=== PATIENT | female | born 2000 | race Caucasian/White ===

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

== ENCOUNTER → 2018-06-08 | Outpatient (CLI) | payer BC, MEDICAID ==
[2018-06-08 18:18] LABS: HCG, SERUM QUANTITATIVE 42927 MIU/ML
== END ==
LOC: M SMT 11:54
DX: Z32.01 Encounter for pregnancy test, result positive (principal)
CPT/HCPCS: 84702

== ENCOUNTER 2018-07-09 08:11 | Emergency (ER) | payer BC, MEDICAID ==
[2018-07-09 08:54] LABS: KETONE, URINE AUTO RFX NEGATIVE (NEGATIVE); MUCUS, URINE RFX SMALL (NEGATIVE); NITRITE, URINE AUTO RFX NEGATIVE (NEGATIVE); RBC, URINE AUTO RFX 4 /HPF (0-3); SPECIFIC GRAVITY UR AUTO RFX 1.024 (1.002-1.035); SQUAM EPITHELIAL CELL UR AURFX 6 /HPF (0-6); WBC, URINE AUTO RFX 9 /HPF (0-3)
[2018-07-09] MEDS: KETOROLAC 60 MG/2 ML VIAL (J1885) IM (09:00)
[2018-07-09 09:34] LABS: LEUKOCYTE ESTERASE UR AUTO RFX TRACE (NEGATIVE)
[2018-07-09] MEDS: ACETAMINOPHEN 325 MG TAB PO (09:54)
[2018-07-09 12:24] LABS: BASO # 0.1 10^3/uL (0.0-0.2); EOS # 0.4 10^3/uL (0.0-0.50); EOS % 4.8 % (0.0-3.0); HEMOGLOBIN 14.2 g/dl (12.0-15.5); IMMATURE GRANULOCYTE % 0.1 % (0-3.0); LYMPH # 2.7 10^3/uL (1.5-6.5); LYMPH % 32.4 % (24.0-44.0); MEAN CORPUSCULAR HEMOGLOBIN 29.3 pg (27.0-33.0); MEAN CORPUSCULAR HGB CONC 33.8 g/dl (32.0-36.5); MEAN CORPUSCULAR VOLUME 86.8 fl (80.0-96.0); MONO # 0.5 10^3/uL (0.0-0.8); MONO % 5.6 % (0.0-5.0); NEUTROPHILS # 4.6 10^3/uL (1.8-7.7); NEUTROPHILS % 56.1 % (36.0-66.0); PLATELET COUNT, AUTOMATED 269 10^3/uL (150-450); RED BLOOD COUNT 4.84 10^6/uL (4.00-5.40); RED CELL DISTRIBUTION WIDTH 14.3 % (11.5-14.5); WHITE BLOOD COUNT 8.2 10^3/uL (4.0-10.0)
[2018-07-09 12:48] LABS: ANION GAP 9 MEQ/L (8-16); BLOOD UREA NITROGEN 11 MG/DL (7-18); CARBON DIOXIDE LEVEL 24 MEQ/L (21-32); CHLORIDE LEVEL 112 MEQ/L (98-107); CREATININE FOR GFR 0.96 MG/DL (0.55-1.30); GLUCOSE, FASTING 79 MG/DL (70-100); HCG, SERUM QUANTITATIVE 21 MIU/ML; POTASSIUM SERUM 4.5 MEQ/L (3.5-5.1); SODIUM LEVEL 145 MEQ/L (136-145)
[2018-07-09] MEDS: metroNIDAZOLE (FLAGYL) 500 MG TAB PO (13:24)
[2018-07-09 14:48] LABS: CHLAMYDIA DNA AMPLIFICATION NEGATIVE (NEGATIVE); GC DNA AMPLIFICATION NEGATIVE (NEGATIVE)
== END 2018-07-09 13:31 | disposition home or self-care (01) ==
LOC: M ED 08:11
DX: O23.592 Infection of other part of genital tract in pregnancy, second trimester (principal); Z3A.14 14 weeks gestation of pregnancy
CPT/HCPCS: 76856

== ENCOUNTER 2019-03-09 22:32 | Emergency (ER) | payer BC, MEDICAID ==
[~2019-03-09] VITALS: Ht 162.6 cm; Wt 71.1 kg
[~2019-03-09 22:32] MED LIST changes: -ONDA4TAB6 PO
[2019-03-09] MEDS ORDERED: NS 1,000 ML IV ONE (23:00)
[2019-03-09] MEDS ORDERED: PROMETHAZINE INJ 25 MG/ML VIAL (J2550) IV ONE (23:15)
[2019-03-09 23:36] LABS: BASO # 0.1 10^3/uL (0.0-0.2); BASO % 0.5 % (0.0-1.0); EOS % 0.4 % (0.0-3.0); HEMATOCRIT 52.7 % (36.0-47.0); HEMOGLOBIN 17.5 g/dl (12.0-15.5); LYMPH # 1.4 10^3/uL (1.5-6.5); LYMPH % 14.1 % (24.0-44.0); MEAN CORPUSCULAR HEMOGLOBIN 29.2 pg (27.0-33.0); MEAN CORPUSCULAR HGB CONC 33.2 g/dl (32.0-36.5); MONO # 0.4 10^3/uL (0.0-0.8); MONO % 4.2 % (0.0-5.0); NEUTROPHILS # 8.1 10^3/uL (1.8-7.7); NEUTROPHILS % 80.3 % (36.0-66.0); PLATELET COUNT, AUTOMATED 315 10^3/uL (150-450); RED BLOOD COUNT 5.99 10^6/uL (4.00-5.40); WHITE BLOOD COUNT 10.1 10^3/uL (4.0-10.0)
[2019-03-09 23:53] LABS: ALBUMIN 3.7 GM/DL (3.2-5.2); ALT/SGPT 17 U/L (12-78); AMYLASE 40 U/L (25-115); BILIRUBIN,DIRECT 0.2 MG/DL (0.0-0.2); BILIRUBIN,TOTAL 0.6 MG/DL (0.2-1.0); BLOOD UREA NITROGEN 8 MG/DL (7-18); CALCIUM LEVEL 8.8 MG/DL (8.5-10.1); CARBON DIOXIDE LEVEL 22 MEQ/L (21-32); CHLORIDE LEVEL 107 MEQ/L (98-107); CREATININE FOR GFR 0.92 MG/DL (0.55-1.30); GLUCOSE, FASTING 104 MG/DL (70-100); LIPASE 129 U/L (73-393); POTASSIUM SERUM 3.6 MEQ/L (3.5-5.1); SODIUM LEVEL 140 MEQ/L (136-145); TOTAL PROTEIN 7.9 GM/DL (6.4-8.2)
[2019-03-10] MEDS: GASTROGRAFIN SOLUTION 30ML PO SCH ×2 (00:09→00:26)
[2019-03-10] MEDS ORDERED: ISOVUE-370 76% 100ML VIAL (Q9967) As Ordered ONE (00:21)
[2019-03-10 00:34] LABS: HCG, SERUM QUALITATIVE NEGATIVE (NEGATIVE)
--- NOTE | 2019-03-10 02:11 | REPVR ---
EXAM: CT Abdomen and Pelvis With Contrast EXAM DATE/TIME: 03/09/2019 10:58 PM CLINICAL HISTORY: 18 years old, female; Abdominal pain; Generalized TECHNIQUE: Imaging protocol: Axial computed tomography images of the abdomen and pelvis with intravenous contrast. Coronal and sagittal reformatted images were created and reviewed. Radiation optimization: All CT scans at this facility use at least one of these dose optimization techniques: automated exposure control; mA and/or kV adjustment per patient size (includes targeted exams where dose is matched to clinical indication); or iterative reconstruction. Contrast material: ISO; Contrast volume: 100 ml; Contrast route: AC; COMPARISON: None FINDINGS: LUNG BASES: No infiltrate or effusion. 3 mm subpleural pulmonary nodule within the right lower lobe (image 14, series 301), statistically, likely benign postinflammatory, based upon the patient's age. VASCULAR: Major vasculature is within normal limits. PERITONEAL : No free air or free fluid. GI: No hiatal hernia. The stomach is mildly distended with ingested material, contrast and gas. The stomach is not sufficiently distended to evaluate wall thickening. No asymmetric small bowel dilation is ingested obstruction. Small bowel folds appear slightly prominent throughout. This could be artifactual secondary to insufficient distention but findings may be related to mild gastroenteritis. Multiple small mesenteric lymph nodes are seen. These may be mildly reactive. Portions of the colon and rectum are slightly distended fluid levels. This is abnormal and could be correlated with symptoms and causes of diarrhea. Mildly elevated perisigmoid and perirectal vascularity is seen which may suggest mild distal proctocolitis. No evidence of acute diverticulitis. The appendix is not identified. HEPATOBILIARY, PANCREAS, SPLEEN: Sagittal hepatic length is 17.9 cm. Small area of hypoenhancement noted anteriorly within the liver, adjacent to the falciform ligament, most likely focal fatty infiltration. Mildly distended gallbladder. No calcified gallstones or biliary dilation. No pericholecystic fluid or stranding. No pancreatic inflammation. Spleen not enlarged. ADRENALS, KIDNEYS, BLADDER, RETROPERITONEAL: Adrenals within normal limits. Symmetric renal enhancement. Mild prominence of the proximal right renal collecting may be positional. No perinephric stranding or fluid. No perivesical stranding. No bladder wall thickening. PELVIC: Slightly heterogeneous uterus and cervix may be secondary to physiologic changes. Slight asymmetric prominence of the right ovary/adnexa, compared to the left with a suspected underlying slightly complex 2.7 x 2.5 cm cystic lesion. This could represent a complex cyst or follicle. If indicated consider ultrasound for better clarification. MUSCULOSKELETAL: Small noninflamed fat containing umbilical hernia. Mild degenerative changes of the spine. IMPRESSION: Clinical correlation for mild enterocolitis. Gastrointestinal findings discussed above in detail. Slightly complex right ovarian/adnexal cystic lesion of 2.7 cm may represent a slightly complex follicle/cyst. If indicated, consider ultrasound for confirmation and further characterization. Other findings discussed above. Electronically signed by: Lm White On 03/10/2019 02:11:01 AM
[2019-03-10] MEDS ORDERED: ONDA4TAB6 PO (02:31)
[2019-03-10 02:51] VITALS: BP 121/69
== END 2019-03-10 03:01 | disposition home or self-care (01) ==
LOC: M ED 22:32
DX: K52.9 Noninfective gastroenteritis and colitis, unspecified (principal); N83.201 Unspecified ovarian cyst, right side
CPT/HCPCS: 36415; 74177; 80048; 80076; 81001; 82150; 83605; 83690; 84703; 85025; 93041; 96361; 96374; 99284; Q9963; Q9967

== ENCOUNTER → 2019-03-09 | Outpatient (REF) | payer BC, MEDICAID ==
[~2019-03-09] MED LIST changes: +ADVI200C5 PO; +COLA100C5 PO; +LABE200T32 PO; +MILK120011 PO; +NIFE30TA50 PO; +ONDA4TAB6 PO; +OXYC1TAB23 PO; +PRENTAB9 PO
== END ==
LOC: M LAB REF 11:46
PROVIDERS: ATTEND Physician Assistant
DX: R11.2 Nausea with vomiting, unspecified (principal)

== ENCOUNTER → 2019-03-16 | Outpatient (CLI) | payer OTHER, MEDICAID ==
[~2019-03-16] MED LIST changes: +ONDA4TAB6 PO
--- NOTE | 2019-03-17 03:48 | REP ---
Clinical: Ovarian cyst. Comparison: 07/09/2018 . Technique: Transabdominal pelvic ultrasound followed by transvaginal examination for better evaluation of the endometrium and adnexa with color Doppler evaluation of the ovaries. Findings: Bladder is unremarkable and measures 6.6 x 3.7 x 8.2 cm . Anteverted uterus measures anteverted 9.2 x 3.7 x 5.7 cm. The endometrial complex measures 3.6 mm thickness. No discrete uterine or endometrial abnormalities are appreciated. Few small myometrial calcifications and trace fluid in the endocervical canal are nonspecific and likely incidental. Bilateral ovaries are normal in appearance and vascularity without evidence for torsion. Right ovary measures 3.6 x 3.2 x 3.0 cm with 2 cm dominant follicle ; R I = 0.48 . Left ovary measures 3.3 x 1.6 x 2.7 cm ; R I = 0.51 . Small amount of free fluid in the posterior cul-de-sac . Impression: 1. Dominant follicle in the right ovary. No evidence for torsion. 2. Incidental uterine findings. Electronically Signed by Vincenzo Fitzpatrick MD 03/17/2019 03:39 A
== END ==
LOC: M RAD 17:10
PROVIDERS: ATTEND Student in an Organized Health Care Education/Training Program
DX: N83.201 Unspecified ovarian cyst, right side (principal)

== ENCOUNTER → 2019-04-14 | Outpatient (CLI) | payer OTHER ==
--- NOTE | 2019-04-14 17:16 | REP ---
Pelvic sonogram: History: Right ovarian cyst. Findings: Transabdominal and transvaginal scanning are performed. Uterine dimensions are normal, 8.5 x 3.6 x 4.2 cm. Endometrial echo is 0.3 cm thick. Uterus is somewhat retroverted. No focal uterine mass is seen. Urinary bladder neville are smooth. Normal ovaries are seen bilaterally. Right ovarian dimensions are 3.0 x 1.4 x 2.8 cm. Left ovary measures 2.9 x 1.6 x 2.8 cm. Impression: Normal pelvic sonography.
== END ==
LOC: M WHC 14:54
PROVIDERS: ATTEND Student in an Organized Health Care Education/Training Program
DX: N83.201 Unspecified ovarian cyst, right side (principal)

== ENCOUNTER 2020-03-30 18:52 | Emergency (ER) | payer BC, MEDICAID ==
[~2020-03-30] VITALS: Ht 162.6 cm; Wt 69.8 kg
[2020-03-30 18:52] VITALS: BP 116/80
== END 2020-03-30 19:22 | disposition home or self-care (01) ==
LOC: M ED 18:52
DX: Z20.2 Contact with and (suspected) exposure to infections with a predominantly sexual mode of transmission (principal); Z72.51 High risk heterosexual behavior

== ENCOUNTER → 2020-07-12 | Outpatient (CLI) | payer BC, MEDICAID ==
[2020-07-12 16:43] LABS: HCG, SERUM QUALITATIVE NEGATIVE (NEGATIVE)
== END ==
LOC: M WUC 14:11
PROVIDERS: ATTEND Obstetrics & Gynecology
DX: O20.0 Threatened abortion (principal)

== ENCOUNTER → 2020-07-14 | Outpatient (CLI) | payer BC, MEDICAID | LOC: M WUC 14:36 | PROVIDERS: ATTEND Obstetrics & Gynecology | DX: O20.0 Threatened abortion (principal); Z3A.00 Weeks of gestation of pregnancy not specified ==

== ENCOUNTER → 2020-09-20 | Outpatient (REF) | payer MEDICAID ==
[2020-09-20 13:37] LABS: HEMATOCRIT 44.8 % (36.0-47.0); HEMOGLOBIN 14.4 g/dl (12.0-15.5); MEAN CORPUSCULAR HEMOGLOBIN 29.4 pg (27.0-33.0); MEAN CORPUSCULAR HGB CONC 32.1 g/dl (32.0-36.5); MEAN CORPUSCULAR VOLUME 91.6 fl (80.0-96.0); PLATELET COUNT, AUTOMATED 229 10^3/uL (150-450); RED BLOOD COUNT 4.89 10^6/uL (4.00-5.40); WHITE BLOOD COUNT 8.7 10^3/uL (4.0-10.0)
[2020-09-20 14:19] LABS: HCG, SERUM QUANTITATIVE 30552 MIU/ML
[2020-09-20 14:24] LABS: HEPATITIS B SURFACE ANTIGEN NEGATIVE (NEGATIVE)
[2020-09-20 14:52] LABS: HIV 1&2 SCREEN CENTAUR NEGATIVE (NEGATIVE)
== END ==
LOC: M LAB REF 12:10
PROVIDERS: ATTEND Obstetrics & Gynecology
DX: O36.80X0 Pregnancy with inconclusive fetal viability, not applicable or unspecified (principal); Z3A.00 Weeks of gestation of pregnancy not specified

== ENCOUNTER → 2020-09-25 | Outpatient (CLI) | payer MEDICAID ==
--- NOTE | 2020-09-25 10:12 | REP ---
INDICATION: DATING/VIABILITY COMPARISON: None. TECHNIQUE: Transabdominal 1st trimester obstetrical ultrasound with color Doppler evaluation FINDINGS: Single live early intrauterine is appreciated. Gestational sac with yolk sac and pole identified. [place]-rump length of 6 mm corresponds to 6 weeks 3 days gestational age with estimated date of delivery 05/18/2021. heart rate equals 121 beats per minute. Subchorionic hemorrhage posterior to the gestational sac measures 23 x 16 x 4 mm. Evaluation of the maternal ovaries demonstrates right corpus luteum cyst. Cervix measures 3.1 cm in length and appears closed. IMPRESSION: 1. Single live early intrauterine at 6 weeks 3 days gestational age. 2. Subchorionic hemorrhage identified. 3. Complete anatomical assessment should be performed and 19-20 weeks. <Electronically signed by Vincenzo Fitzpatrick > 09/25/20 [id number]
== END ==
LOC: M WHC 09:18
PROVIDERS: ATTEND Obstetrics & Gynecology
DX: Z34.81 Encounter for supervision of other normal pregnancy, first trimester (principal)

== ENCOUNTER → 2020-10-18 | Outpatient (REF) | payer OTHER | LOC: M LAB REF 16:19 | PROVIDERS: ATTEND Obstetrics & Gynecology | DX: Z34.81 Encounter for supervision of other normal pregnancy, first trimester (principal) ==

== ENCOUNTER → 2020-10-19 | Outpatient (REF) | payer OTHER ==
[2020-10-19 17:34] LABS: TOTAL PROTEIN 24 HOUR URINE 63.6 MG/24HR (50-150); URINE TOTAL PROTEIN 10.6 MG/DL (0-12)
== END ==
LOC: M LAB REF 16:27
PROVIDERS: ATTEND Obstetrics & Gynecology
DX: O14.90 Unspecified pre-eclampsia, unspecified trimester (principal)

== ENCOUNTER → 2021-01-01 | Outpatient (CLI) | payer OTHER ==
[~2021-01-01] MED LIST changes: +ASPI1CHW3 PO; +MACR100C43 PO
--- NOTE | 2021-01-01 15:24 | REP ---
INDICATION: ANATOMY COMPARISON: None. TECHNIQUE: Transabdominal obstetrical ultrasound with color Doppler evaluation. FINDINGS: Examination demonstrates a single live intrauterine in breech presentation. motion is identified by technologist. Placenta is noted posterior and grade 1 without evidence for placenta previa or abruption. Amniotic fluid volume is normal. Cervix measures 3.3 cm in length and appears closed.. Gestational age by 1st ultrasound 20 weeks 5 days with FLAVIO 05/16/2021. Gestational age by current measurements 20 weeks 0 days with FLAVIO 05/21/2021. FHR equals 160 beats per minute. BPD: 4.3 cm at 18 weeks 6 days HC: 17.6 cm at 20 weeks 1 day AC: 15.5 cm at 20 weeks 4 days FL: 3.2 cm at 19 weeks 6 days HL: 3.2 cm at 20 weeks 5 days HC/AC: 1.14 Estimated weight 341 grams (23rdpercentile). Anatomical assessment demonstrates normal structures including cranium, choroid plexus, cavum, cerebellum/posterior fossa, facial features, lungs, four-chamber heart/ventricular outflow tracts, diaphragm, stomach, cord insertion/three-vessel cord, kidneys/bladder, spine, and extremities. IMPRESSION: Single live intrauterine in breech presentation demonstrating appropriate estimated weight. Anatomical assessment is complete and normal. <Electronically signed by Vincenzo Fitzpatrick > 01/01/21 [id number]
== END ==
LOC: M WHC 13:25
PROVIDERS: ATTEND Obstetrics & Gynecology
DX: Z34.82 Encounter for supervision of other normal pregnancy, second trimester (principal); Z3A.20 20 weeks gestation of pregnancy

== ENCOUNTER 2021-01-06 12:31 | Outpatient (CLI) | payer OTHER ==
[~2021-01-06] VITALS: Ht 162.6 cm; Wt 72.7 kg
[~2021-01-06 12:31] MED LIST changes: -ASPI1CHW3 PO; -MACR100C43 PO
[2021-01-06 12:58] VITALS: BP 137/77
[2021-01-06 13:08] VITALS: BP 137/77
[2021-01-06] MEDS ORDERED: ASPI1CHW3 PO (13:08)
[2021-01-06] MEDS ORDERED: PRENTAB9 PO (13:08)
--- NOTE | 2021-01-06 14:37 | IPNPDOC ---
Text Note Date of Service The patient was seen on 01/06/21. NOTE L&D Triage Note: S: 20yo at 21w2d presents with pelvic and back pain. Denies N/V/F/C. Pelvic pain started yesterday O: vss, AF +doptones Gen: well appearing abd: gravid Urine dip c/w UTI. Culture sent A/P: 20yo at 21w2w with acute cystitis -Reassuring status -Macrobid 100mg BID x7 day - labor precautions and OB f/u Thursday Rashmi Sandra MD VS,Sukhdev, I+O VS, Sukhdev, I+O Vital Signs Date Time Temp Pulse Resp B/P (MAP) Pulse Ox O2 Delivery O2 Flow Rate FiO2 01/06/21 13:08 97.1 100 18 137/77 (97) Room Air RASHMI SANDRA MD. Jan 06, 2021 14:37
[2021-01-06] MEDS ORDERED: NITROFURANTOIN (MACROBID) 100 MG CAP PO ONE (15:00)
[2021-01-07] MEDS ORDERED: MACR100C43 PO (09:32)
== END 2021-01-06 14:34 | disposition home or self-care (01) ==
LOC: M LDO 12:31
PROVIDERS: ATTEND Obstetrics & Gynecology
DX: O23.42 Unspecified infection of urinary tract in pregnancy, second trimester (principal); Z3A.21 21 weeks gestation of pregnancy

== ENCOUNTER 2021-01-09 04:53 | Emergency (ER) | payer OTHER ==
[~2021-01-09] VITALS: Ht 162.6 cm; Wt 72.1 kg
[~2021-01-09 04:53] MED LIST changes: +ASPI1CHW3 PO; +MACR100C43 PO
[2021-01-09 04:54] VITALS: BP 117/67
[2021-01-09] MEDS ORDERED: ACET-683 PO (05:04)
[2021-01-10] MEDS ORDERED: CEPH500C PO (08:37)
== END 2021-01-09 05:20 | disposition admitted as inpatient to this hospital (09) ==
LOC: M ED 04:53
DX: Z53.29 Procedure and treatment not carried out because of patient's decision for other reasons (principal)

== ENCOUNTER 2021-01-09 05:25 | Outpatient (CLI) | payer OTHER ==
[~2021-01-09] VITALS: Ht 162.6 cm; Wt 74.2 kg
[~2021-01-09 05:25] MED LIST changes: +ACET-683 PO
[2021-01-09 05:56] VITALS: BP 113/73
[2021-01-09] MEDS ORDERED: cefTRIAXone SOD 1 GM in D5W MINI-BAG PLUS 50 ML IV ONE (06:15)
[2021-01-09] MEDS ORDERED: MORPHINE 4 MG/ML 1ML VIAL/SYRINGE (J2270) IV ONE (06:15)
[2021-01-09] MEDS ORDERED: NS 1,000 ML IV ONE (06:20)
--- NOTE | 2021-01-09 06:38 | IPNPDOC ---
Obstetrical Progress Note Date of Service Jan 09, 2021 Subjective 20yo at 21+4 weeks. EDC: 05/18/21. Presents with left-sided flank pain and fever. Pain has also recently been located along the right flank. Patient started treatment for a UTI earlier this week with Macrobid. She has a history of nephrolithiasis. She's continued to have increased lower back, flank pain, despite starting the prescribed antibiotic (Macrobid). Denies gross hematuria. Complains of fever, chills. She took her temperature at home and states it was 102 Fahrenheit. She denies vaginal bleeding, loss of fluid or uterine contractions. She reports movement. Past medical history : Nephrolithiasis Surgical history: Low transverse section Obstetric history: G1, Severe preeclampsia. Emergent at 35 weeks [employer] history denies any STI Medications: vitamin Macrobid and 81 mg aspirin NKDA Currently normotensive, afebrile (patient took Tylenol just prior to her arrival to triage) Heart regular rate and rhythm Lungs clear to auscultation bilaterally Left CVA tenderness No abdominal tenderness/fundal tenderness Doppler tones within normal limits, 140-150 bpm Sandborn: No contractions A/P: 20-year-old G2, P1 at 21+4 weeks gestation. Presentation clinically concerning for nephrolithiasis, complicated by pyelonephritis. -IV fluid bolus -IV Rocephin 1 g -IV morphine 4 mg for pain control -Renal ultrasound, bilateral -CBC, CMP, UA/culture Tiffani Mullen DO Objective Vital Signs Date Time Temp Pulse Resp B/P (MAP) Pulse Ox O2 Delivery O2 Flow Rate FiO2 01/09/21 05:56 97.4 134 16 113/73 (86) JENAE MULLEN DO Jan 09, 2021 06:38
[2021-01-09 06:46] LABS: AMORPHOUS SEDIMENT SMALL (NEGATIVE); APPEARANCE, URINE HAZY (CLEAR); BACTERIA, URINE AUTO 1+ (NEGATIVE); BILIRUBIN, URINE AUTO NEGATIVE (NEGATIVE); BLOOD, URINE BLOOD NEGATIVE (NEGATIVE); COLOR, URINE AMBER (YELLOW); GLUCOSE, URINE (UA) AUTO NEGATIVE (NEGATIVE); KETONE, URINE AUTO TRACE mg/dL (NEGATIVE); LEUKOCYTE ESTERASE, URINE AUTO TRACE (NEGATIVE); MUCUS, URINE SMALL (NEGATIVE); NITRITE, URINE AUTO NEGATIVE (NEGATIVE); PROTEIN, URINE AUTO 2+ mg/dL (NEGATIVE); RBC, URINE AUTO 3 /HPF (0-3); SPECIFIC GRAVITY URINE AUTO 1.017 (1.002-1.035); SQUAMOUS EPITHELIAL CELL UR AU 1 /HPF (0-6); WBC, URINE AUTO 20 /HPF (0-3)
[2021-01-09 06:48] LABS: HEMATOCRIT 33.1 % (36.0-47.0); HEMOGLOBIN 11.2 g/dl (12.0-15.5); MEAN CORPUSCULAR HEMOGLOBIN 30.5 pg (27.0-33.0); MEAN CORPUSCULAR HGB CONC 33.8 g/dl (32.0-36.5); MEAN CORPUSCULAR VOLUME 90.2 fl (80.0-96.0); PLATELET COUNT, AUTOMATED 161 10^3/uL (150-450); RED BLOOD COUNT 3.67 10^6/uL (4.00-5.40); WHITE BLOOD COUNT 11.3 10^3/uL (4.0-10.0)
[2021-01-09 07:13] LABS: ALBUMIN 2.4 GM/DL (3.2-5.2); ALT/SGPT 12 U/L (12-78); BILIRUBIN,TOTAL 0.4 MG/DL (0.2-1.0); BLOOD UREA NITROGEN 8 MG/DL (7-18); CALCIUM LEVEL 8.1 MG/DL (8.5-10.1); CARBON DIOXIDE LEVEL 22 MEQ/L (21-32); CHLORIDE LEVEL 102 MEQ/L (98-107); CREATININE FOR GFR 0.59 MG/DL (0.55-1.30); GLOMERULAR FILTRATION RATE > 60.0 (>60); GLUCOSE, FASTING 94 MG/DL (70-100); POTASSIUM SERUM 3.4 MEQ/L (3.5-5.1); SODIUM LEVEL 134 MEQ/L (136-145); TOTAL PROTEIN 6.2 GM/DL (6.4-8.2)
--- NOTE | 2021-01-09 08:14 | REP ---
INDICATION: bilateral flank pain, fever, h/o nephrolithiasis. COMPARISON: Comparison CT study March 10, 2019.. TECHNIQUE: Urinary tract sonography. FINDINGS: Scanning at the level of the urinary bladder shows no abnormality. Renal cortical echogenicity pattern is normal bilaterally and contours are smooth. There is moderate right-sided hydronephrosis with dilated proximal ureter. No calculus is seen. An extrarenal pelvis versus mild hydronephrosis is visible on CT images from March of 2019. The right kidney measures 13.3 x 6.0 x 5.3 cm. Left renal dimensions are 11.8 x 4.7 x 5.3 cm. IMPRESSION: Moderate right-sided hydronephrosis with dilated proximal ureter on the right. Otherwise normal urinary tract sonography. No calculus seen.. <Electronically signed by Santosh Simpson > 01/09/21 0800
[2021-01-09 09:21] VITALS: BP 107/71
[2021-01-09] MEDS: LR 1,000 ML IV SCH ×2 (09:24→17:02)
[2021-01-09 14:49] VITALS: BP 112/70
[2021-01-09] MEDS ORDERED: ACETAMINOPHEN TAB 650MG DOSE (2X325MG) PO ONE (15:10)
[2021-01-09] MEDS ORDERED: PERCOCET 5MG/325MG TAB PO PRN (15:10)
[2021-01-09 18:35] VITALS: BP 115/62
[2021-01-09 19:34] VITALS: BP 118/71
[2021-01-09 22:50] VITALS: BP 118/68
[2021-01-10] MEDS: LR 1,000 ML IV SCH (00:16)
[2021-01-10] MEDS ORDERED: ACETAMINOPHEN 500 MG TAB PO PRN (02:10)
[2021-01-10 02:12] VITALS: BP 109/62
[2021-01-10] MEDS ORDERED: cefTRIAXone SOD 1 GM in D5W MINI-BAG PLUS 50 ML IV ONE (07:00)
[2021-01-10 07:05] VITALS: BP 111/71
[2021-01-10] MEDS ORDERED: CEPH500C PO (08:37)
== END 2021-01-10 09:12 | disposition home or self-care (01) ==
LOC: M LDO 05:25
PROVIDERS: ATTEND Obstetrics & Gynecology
DX: O23.42 Unspecified infection of urinary tract in pregnancy, second trimester (principal); Z3A.21 21 weeks gestation of pregnancy
CPT/HCPCS: 36415; 76775; 80053; 81001; 85027; J0696; J2270; U0002

== ENCOUNTER → 2021-02-25 | Outpatient (CLI) | payer OTHER ==
[~2021-02-25] MED LIST changes: +CEPH500C PO
[2021-02-25 13:13] LABS: HEMATOCRIT 34.7 % (36.0-47.0); HEMOGLOBIN 11.2 g/dl (12.0-15.5); MEAN CORPUSCULAR HEMOGLOBIN 29.6 pg (27.0-33.0); MEAN CORPUSCULAR HGB CONC 32.3 g/dl (32.0-36.5); MEAN CORPUSCULAR VOLUME 91.6 fl (80.0-96.0); PLATELET COUNT, AUTOMATED 289 10^3/uL (150-450); RED BLOOD COUNT 3.79 10^6/uL (4.00-5.40); WHITE BLOOD COUNT 12.7 10^3/uL (4.0-10.0)
== END ==
LOC: M LAB 11:03
PROVIDERS: ATTEND Obstetrics & Gynecology
DX: Z34.82 Encounter for supervision of other normal pregnancy, second trimester (principal)

== ENCOUNTER → 2021-04-23 | Outpatient (REF) | payer OTHER | LOC: M LAB REF 16:41 | PROVIDERS: ATTEND Obstetrics & Gynecology | DX: Z34.83 Encounter for supervision of other normal pregnancy, third trimester (principal) ==

== ENCOUNTER → 2021-05-07 | Outpatient (REF) | payer OTHER | LOC: M LAB REF 16:39 | PROVIDERS: ATTEND Advanced Practice Midwife | DX: R30.0 Dysuria (principal) ==

== ENCOUNTER → 2021-05-11 | Outpatient (CLI) | payer OTHER | END | disposition home or self-care (01) | LOC: M LABSMTC 09:08 | PROVIDERS: ATTEND Anesthesiology | DX: Z01.812 Encounter for preprocedural laboratory examination (principal) ==

== ENCOUNTER 2022-11-05 15:43 | Emergency (ER) | payer OTHER ==
[~2022-11-05] VITALS: Ht 162.6 cm; Wt 67.3 kg
[~2022-11-05 15:43] MED LIST changes: +IBUP80TA PO; -LABE200T32 PO; +LABE200T5 PO; +PERCOCET PO
[2022-11-05 19:48] LABS: APPEARANCE, URINE MANUAL CLEAR (CLEAR); COLOR, URINE MANUAL LT YELLOW (YELLOW)
[2022-11-05 19:48] LABS: BASO # 0.1 10^3/uL (0.0-0.2); BASO % 0.6 % (0.0-1.0); EOS # 0.2 10^3/uL (0.0-0.5); HEMATOCRIT 39.3 % (36.0-47.0); HEMOGLOBIN 12.7 g/dl (12.0-15.5); LYMPH # 1.9 10^3/uL (1.5-5.0); LYMPH % 23.9 % (24.0-44.0); MEAN CORPUSCULAR HEMOGLOBIN 28.8 pg (27.0-33.0); MEAN CORPUSCULAR HGB CONC 32.3 g/dl (32.0-36.5); MEAN CORPUSCULAR VOLUME 89.1 fl (80.0-96.0); MONO # 0.5 10^3/uL (0.0-0.8); NEUTROPHILS % 65.2 % (36.0-66.0); PLATELET COUNT, AUTOMATED 264 10^3/uL (150-450); RED BLOOD COUNT 4.41 10^6/uL (4.00-5.40); WHITE BLOOD COUNT 7.7 10^3/uL (4.0-10.0)
[2022-11-05 19:50] LABS: BILIRUBIN, URINE MANUAL NEGATIVE (NEGATIVE); BLOOD URINE MANUAL NEGATIVE (NEGATIVE); GLUCOSE, URINE (UA) MANUAL NEGATIVE (NEGATIVE); KETONE, URINE MANUAL NEGATIVE (NEGATIVE); LEUKOCYTE ESTERASE, URINE MAN POSITIVE (NEGATIVE); NITRITE, URINE MANUAL POSITIVE (NEGATIVE); PH,URINE MAN 5.5 UNITS (5.0 - 7.0); PROTEIN, URINE MANUAL NEGATIVE (NEGATIVE); UROBILINOGEN, URINE MANUAL NORMAL (NORMAL)
[2022-11-05 19:52] VITALS: BP 117/76
[2022-11-05 20:08] LABS: BACTERIA, URINE LARGE AMOUNT; HYALINE CAST, URINE NONE SEEN /lpf (0-1); RBC, URINE 0-1 /hpf (0-3); SQUAMOUS EPITHELIAL CELL URINE MOD AMOUNT /hpf (SMALL AMT); WBC, URINE 40-50 /hpf (0-3)
[2022-11-05] MEDS ORDERED: CEPH500C PO (23:28)
== END 2022-11-05 19:54 | disposition home or self-care (01) ==
LOC: M ED 15:43
DX: O02.1 Missed abortion (principal); Z3A.08 8 weeks gestation of pregnancy; Z79.899 Other long term (current) drug therapy

== ENCOUNTER → 2022-12-23 | Outpatient (REF) | payer OTHER ==
[2022-12-23 12:47] LABS: HEMATOCRIT 41.9 % (36.0-47.0); HEMOGLOBIN 13.7 g/dl (12.0-15.5); MEAN CORPUSCULAR HEMOGLOBIN 29.2 pg (27.0-33.0); MEAN CORPUSCULAR HGB CONC 32.7 g/dl (32.0-36.5); MEAN CORPUSCULAR VOLUME 89.3 fl (80.0-96.0); PLATELET COUNT, AUTOMATED 253 10^3/uL (150-450); RED BLOOD COUNT 4.69 10^6/uL (4.00-5.40); WHITE BLOOD COUNT 9.1 10^3/uL (4.0-10.0)
[2022-12-23 14:05] LABS: HCG, SERUM QUANTITATIVE 38193.8 MIU/ML (<4.2); HEPATITIS C VIRUS ABY INDEX 0.1 INDEX (<0.8); HIV 1&2 SCREEN CENTAUR NEGATIVE (NEGATIVE)
== END ==
LOC: M LAB REF 12:22
PROVIDERS: ATTEND Obstetrics & Gynecology
DX: O36.80X0 Pregnancy with inconclusive fetal viability, not applicable or unspecified (principal); Z32.01 Encounter for pregnancy test, result positive

== ENCOUNTER → 2023-01-12 | Outpatient (CLI) | payer OTHER | LOC: M RAD 08:17 | PROVIDERS: ATTEND Obstetrics & Gynecology | DX: Z32.01 Encounter for pregnancy test, result positive (principal); Z3A.09 9 weeks gestation of pregnancy ==

== ENCOUNTER → 2023-04-08 | Outpatient (CLI) | payer OTHER ==
[~2023-04-08] MED LIST changes: +ASPI-655 PO; -ASPI1CHW3 PO
== END ==
LOC: M RAD 13:01
PROVIDERS: ATTEND Obstetrics & Gynecology
DX: Z34.82 Encounter for supervision of other normal pregnancy, second trimester (principal); Z3A.20 20 weeks gestation of pregnancy

== ENCOUNTER → 2023-06-04 | Outpatient (CLI) | payer OTHER ==
[~2023-06-04] MED LIST changes: +NIFE-3 PO; -NIFE30TA50 PO
== END ==
LOC: M LAB 08:16
PROVIDERS: ATTEND Obstetrics & Gynecology
DX: O99.810 Abnormal glucose complicating pregnancy (principal)

== ENCOUNTER 2023-07-10 17:41 | Emergency (ER) | payer OTHER ==
[~2023-07-10] VITALS: Ht 162.6 cm; Wt 84.1 kg
[2023-07-10 17:42] VITALS: BP 123/73; TEMP 97.8; O2SAT 99
[2023-07-10] MEDS ORDERED: ACET-897 PO (19:31)
[2023-07-10] MEDS ORDERED: ASPI81CH33 PO (19:31)
[2023-07-10] MEDS ORDERED: NITR100C2 PO (20:51)
== END 2023-07-10 18:34 | disposition admitted as inpatient to this hospital (09) ==
LOC: M ED 17:41
DX: O26.893 Other specified pregnancy related conditions, third trimester (principal); O24.419 Gestational diabetes mellitus in pregnancy, unspecified control; O13.3 Gestational [pregnancy-induced] hypertension without significant proteinuria, third trimester; Z53.9 Procedure and treatment not carried out, unspecified reason

== ENCOUNTER 2023-07-10 18:36 | Outpatient (CLI) | payer OTHER ==
[~2023-07-10] VITALS: Ht 162.6 cm; Wt 85.5 kg
[2023-07-10 18:59] VITALS: BP 121/81
[2023-07-10] MEDS ORDERED: ACET-897 PO (19:31)
[2023-07-10] MEDS ORDERED: ASPI81CH33 PO (19:31)
[2023-07-10] MEDS ORDERED: HOME MED LIST COMPLETE! XX SCH (19:35)
[2023-07-10] MEDS ORDERED: NITROFURANTOIN (MACROBID) 100 MG CAP PO ONE (20:50)
[2023-07-10] MEDS ORDERED: NITR100C2 PO (20:51)
[2023-07-10] MEDS ORDERED: PHENAZOPYRIDINE 100 MG TAB PO ONE (20:55)
== END 2023-07-10 21:21 | disposition home or self-care (01) ==
LOC: M LDO 18:36
PROVIDERS: ATTEND Advanced Practice Midwife
DX: O23.43 Unspecified infection of urinary tract in pregnancy, third trimester (principal); N39.0 Urinary tract infection, site not specified; O34.218 Maternal care for other type scar from previous cesarean delivery; Z87.59 Personal history of other complications of pregnancy, childbirth and the puerperium; Z3A.34 34 weeks gestation of pregnancy

== ENCOUNTER → 2023-07-14 | Outpatient (REF) | payer OTHER ==
[~2023-07-14] MED LIST changes: +ACET-897 PO; +ASPI81CH33 PO; +NITR100C2 PO
== END ==
LOC: M LAB REF 17:20
PROVIDERS: ATTEND Obstetrics & Gynecology
DX: Z34.83 Encounter for supervision of other normal pregnancy, third trimester (principal)

== ENCOUNTER 2023-08-06 04:54 | Inpatient (IN) | payer OTHER ==
[2023-08-06] VITALS (15 sets, daily range): BP systolic 114–140; BP diastolic 74–99; TEMP 96.3; O2SAT 97–99
[~2023-08-06] VITALS: Ht 162.6 cm; Wt 86.5 kg
[2023-08-06] MEDS ORDERED: LACTATED RINGER'S 1000 ML IV STA (05:07)
[2023-08-06 05:55] LABS: HEMATOCRIT 35.4 % (36.0-47.0); HEMOGLOBIN 11.2 g/dl (12.0-15.5); MEAN CORPUSCULAR HEMOGLOBIN 26.9 pg (27.0-33.0); MEAN CORPUSCULAR HGB CONC 31.6 g/dl (32.0-36.5); MEAN CORPUSCULAR VOLUME 85.1 fl (80.0-96.0); PLATELET COUNT, AUTOMATED 171 10^3/uL (150-450); RED BLOOD COUNT 4.16 10^6/uL (4.00-5.40); WHITE BLOOD COUNT 9.2 10^3/uL (4.0-10.0)
[2023-08-06] MEDS ORDERED: ceFAZolin SOD 2 GM in IV 1 EA IV ONE (06:00)
[2023-08-06] MEDS ORDERED: BICITRA 30ML SOLN UDC PO ONE (06:00)
[2023-08-06] MEDS ORDERED: HOME MED LIST COMPLETE! XX SCH (06:20)
[2023-08-06] MEDS: LR 1,000 ML IV SCH ×4 (06:27→23:09)
[2023-08-06] MEDS ORDERED: SIMETHICONE 80MG CHEW TAB PO PRN (07:55)
[2023-08-06] MEDS ORDERED: RHOGAM 300MCG (1500IU) INJ IM SCH (07:55)
[2023-08-06] MEDS ORDERED: OXYTOCIN DRIP 30 UNITS in IV 1 EA IV SCH (07:55)
[2023-08-06] MEDS ORDERED: MORPHINE PRES-FREE INJ 10 MG/10 ML VIAL As Ordered ONE (08:08)
[2023-08-06] MEDS ORDERED: OXYTOCIN INJ 10UNITS/ML 1ML VIAL As Ordered ONE ×2 (08:08→08:43)
[2023-08-06] MEDS ORDERED: KETOROLAC 60MG 2ML VIAL As Ordered ONE (08:08)
[2023-08-06] MEDS ORDERED: ONDANSETRON 4MG 2ML VIAL As Ordered ONE ×2 (08:08→10:15)
[2023-08-06 08:47] LABS: CORD GAS ABE V -1.8; CORD GAS HCO3 A 24.6 MMOL/L; CORD GAS HCO3 V 22.9 MMOL/L; CORD GAS O2 SAT A 52.7 %; CORD GAS O2 SAT V 81.2 %; CORD GAS PCO2 A 48.8 mmHg; CORD GAS PH A 7.32 UNITS; CORD GAS PH V 7.387 UNITS; CORD GAS PO2 A 21.9 mmHg; CORD GAS PO2 V 33.6 mmHg; CORD GAS SBC A 21.8 MMOL/L; CORD GAS SBC V 22.6 MMOL/L; CORD GAS TCO2 A 26.1 MMOL/L; CORD GAS TCO2 V 24.1 MMOL/L
[2023-08-06] MEDS: PRENATAL VITAMINS CHEWABLE TABLET PO SCH (09:00)
[2023-08-06] MEDS ORDERED: PHENYLephrine 500MCG 5ML (100MCG/ML) SYRINGE As Ordered ONE (09:11)
[2023-08-06] MEDS: SLF 3 ML SYR IV SCH ×2 (09:45→17:45)
[2023-08-06] MEDS ORDERED: **NOTE PATIENT COMMENT** MISC XX SCH (09:45)
[2023-08-06] MEDS ORDERED: diphenhydrAMINE 50MG/ML VIAL IV PRN (09:45)
[2023-08-06] MEDS ORDERED: NALOXONE INJ 0.4MG/1ML VIAL IV PRN ×2 (09:45)
[2023-08-06] MEDS ORDERED: ONDANSETRON 4MG 2ML VIAL IV PRN (09:45)
[2023-08-06] MEDS ORDERED: fentaNYL 100 MCG/2 ML INJECTION IV PRN (09:45)
[2023-08-06] MEDS ORDERED: OXYTOCIN 30UNITS IN 0.9% NaCl 500ML IV BAG As Ordered ONE (09:51)
[2023-08-06] MEDS: METOCLOPRAMIDE INJ 10MG/2ML VIAL IV PRN ×2 (11:02→17:44)
[2023-08-06] MEDS ORDERED: METOCLOPRAMIDE INJ 10MG/2ML VIAL As Ordered ONE (11:02)
[2023-08-06] MEDS ORDERED: MEPERIDINE 25 MG/ML 1ML VIAL IM ONE (11:10)
[2023-08-06] MEDS ORDERED: MEPERIDINE 25 MG/ML 1ML VIAL IV PRN (11:15)
[2023-08-06] MEDS ORDERED: MEPERIDINE 25 MG/ML 1ML VIAL As Ordered ONE (11:18)
[2023-08-06] MEDS: KETOROLAC 30 MG/ML 1ML VIAL IV SCH ×2 (14:43→20:29)
[2023-08-06] MEDS: DOCUSATE SODIUM 100MG CAPSULE PO SCH (20:28)
[2023-08-07] MEDS: KETOROLAC 30 MG/ML 1ML VIAL IV SCH (02:12)
[2023-08-07] MEDS: SLF 3 ML SYR IV SCH (02:12)
[2023-08-07 06:00] VITALS: BP 101/62; O2SAT 100
[2023-08-07] MEDS: PRENATAL VITAMINS CHEWABLE TABLET PO SCH (08:15)
[2023-08-07] MEDS: DOCUSATE SODIUM 100MG CAPSULE PO SCH ×2 (08:15→20:07)
[2023-08-07 08:42] LABS: HEMATOCRIT 28.6 % (36.0-47.0); HEMOGLOBIN 9.1 g/dl (12.0-15.5); MEAN CORPUSCULAR HEMOGLOBIN 27.2 pg (27.0-33.0); MEAN CORPUSCULAR HGB CONC 31.8 g/dl (32.0-36.5); MEAN CORPUSCULAR VOLUME 85.6 fl (80.0-96.0); PLATELET COUNT, AUTOMATED 153 10^3/uL (150-450); RED BLOOD COUNT 3.34 10^6/uL (4.00-5.40); WHITE BLOOD COUNT 8.7 10^3/uL (4.0-10.0)
[2023-08-07] MEDS: LR 1,000 ML IV SCH (09:50)
[2023-08-07 10:00] VITALS: BP 125/86; O2SAT 98
[2023-08-07] MEDS: IBUPROFEN 800 MG TAB PO SCH ×2 (10:07→17:57)
[2023-08-07] MEDS ORDERED: PERCOCET 5MG/325MG TAB PO PRN (13:00)
[2023-08-07 14:00] VITALS: BP 132/86; O2SAT 98
[2023-08-07 18:00] VITALS: BP 122/88; O2SAT 98
[2023-08-07 22:01] VITALS: BP 124/84; O2SAT 98
[2023-08-07] MEDS: PERCOCET 5MG/325MG TAB PO PRN (23:21)
[2023-08-08 02:00] VITALS: BP 146/74; O2SAT 98
[2023-08-08] MEDS: IBUPROFEN 800 MG TAB PO SCH ×3 (02:05→18:07)
[2023-08-08 05:44] VITALS: BP 129/85; O2SAT 96
[2023-08-08] MEDS: PRENATAL VITAMINS CHEWABLE TABLET PO SCH (08:49)
[2023-08-08] MEDS: DOCUSATE SODIUM 100MG CAPSULE PO SCH ×2 (08:50→20:00)
[2023-08-08] MEDS ORDERED: BOOSTRIX VACCINE (TETANUS/DIPHTH/ACEL. PERTUSSIS) 0.5ML SYR IM.IMMUN ONE (09:00)
[2023-08-08] MEDS ORDERED: MEASLES,MUMPS,RUBELLA VACCINE INJ (MMR-II) SC.IMMUN ONE (09:00)
[2023-08-08 10:00] VITALS: BP 123/79; O2SAT 84
[2023-08-08 14:00] VITALS: BP 120/82; O2SAT 98
[2023-08-08 18:00] VITALS: BP 130/88; O2SAT 99
[2023-08-08] MEDS: PERCOCET 5MG/325MG TAB PO PRN (20:01)
[2023-08-08 22:01] VITALS: BP 121/80; O2SAT 98
[2023-08-09 01:46] VITALS: BP 129/76; O2SAT 98
[2023-08-09] MEDS: IBUPROFEN 800 MG TAB PO SCH ×2 (02:28→11:12)
[2023-08-09 05:50] VITALS: BP 135/100; O2SAT 98
[2023-08-09 10:00] VITALS: BP 110/65; O2SAT 98
[2023-08-09] MEDS: PRENATAL VITAMINS CHEWABLE TABLET PO SCH (11:11)
[2023-08-09] MEDS: DOCUSATE SODIUM 100MG CAPSULE PO SCH (11:11)
[2023-08-09] MEDS ORDERED: COLA100C5 PO (11:44)
[2023-08-09] MEDS ORDERED: OXYC-517 PO (11:44)
[2023-08-09] MEDS ORDERED: IBUP-1022 PO (11:44)
[2023-08-09] MEDS ORDERED: ACET-683 PO (11:44)
== END 2023-08-09 13:15 | disposition home or self-care (01) | DRG 540 ==
LOC: M LDI 04:54 → M OBS 12:00
PROVIDERS: ADMIT Obstetrics & Gynecology; ATTEND Obstetrics & Gynecology
PROC: 10D00Z1 Extraction of Products of Conception, Low, Open Approach (ICD-10-PCS; principal; 2023-08-06 07:30)
DX: O34.211 Maternal care for low transverse scar from previous cesarean delivery (principal); O24.420 Gestational diabetes mellitus in childbirth, diet controlled; Z3A.38 38 weeks gestation of pregnancy; Z37.0 Single live birth